=== PATIENT | male | born 1950 | race Caucasian/White ===

== ENCOUNTER 2018-11-19 22:11 | Emergency (ER) | payer MEDICARE, BC ==
[~2018-11-19] VITALS: Ht 177.8 cm; Wt 102.1 kg
[~2018-11-19 22:11] MED LIST: ASPI-605 PO; ATORVASTATIN TAB 10MG; CALC100067 PO; DOXY100C2; MULT-1168 PO; PSYL1PAC PO; TRAZ-182 PO; UBID100C13 PO
--- NOTE | 2018-11-19 22:12 | NUR ---
PT BIBPA FROM HOME FOR INTERMITTENT CHESTPAIN X1HR. NAD NOTED. RESP EVEN AND UNLABORED. PT DENIES PAIN AT THIS TIME. PT STATES THAT PAIN IS WORSE WHEN HE SITS UP AND ON INHALATION. PT ON MONITOR IN BED 10 WITH AT BEDSIDE. WILL CONTINUE TO MONITOR.
--- NOTE | 2018-11-19 22:15 | NUR ---
TECH AT BEDSIDE FOR EKG
--- NOTE | 2018-11-19 22:29 | NUR ---
BLOOD DRAWN AND GIVEN TO LAB.
[2018-11-19] MEDS ORDERED: IV NS 0.9% 500 ML BAG IV ONE (22:30)
[2018-11-19] MEDS ORDERED: IV NS 0.9% 1,000 ML BAG IV ONE (22:30)
[2018-11-19 22:34] LABS: BASOPHILS # (AUTO) 0.1 /CMM (0.0-0.2); BASOPHILS % (AUTO) 0.9 % (0.0-2.0); EOSINOPHILS % (AUTO) 1.2 % (0.0-6.0); HEMATOCRIT 41 % (39-51); HEMOGLOBIN 13.9 g/dL (13.5-17.5); LYMPHOCYTES # (AUTO) 1.3 /CMM (0.8-4.8); LYMPHOCYTES % (AUTO) 10.4 % (20.0-44.0); MEAN CORPUSCULAR HGB CONC 34 g/dl (31.0-36.0); MEAN CORPUSCULAR VOLUME 87 fL (80-96); MONOCYTES # (AUTO) 1.4 /CMM (0.1-1.30); MONOCYTES % (AUTO) 11.2 % (2.0-12.0); NEUTROPHILS # (AUTO) 9.3 /CMM (1.8-8.9); NEUTROPHILS % (AUTO) 76.3 % (43.0-81.0); PLATELET COUNT (AUTO) 403 /CMM (150-450); RED BLOOD CELL COUNT(AUTO) 4.67 MIL/uL (4.5-6.0); WHITE BLOOD COUNT (AUTO) 12.2 K/uL (4.3-11.0)
[2018-11-19] MEDS ORDERED: IV NS 0.9% 250 ML IV ONE (22:40)
[2018-11-19] MEDS ORDERED: CT SWABBABLE VALVE TRANS SET 1 EA INFUS.SET MC ONE (22:40)
[2018-11-19] MEDS ORDERED: IOHEXOL-350 100 ML VIAL IV ONE (22:40)
[2018-11-19 22:41] LABS: CALCIUM, SERUM 8.9 mg/dL (8.5-10.1); CARBON DIOXIDE 28 mmol/L (21-32); CHLORIDE 99 mmol/L (98-107); CREATININE 1.2 mg/dL (0.6-1.3); GLUCOSE 109 mg/dL (74-106); POTASSIUM 3.4 mmol/L (3.5-5.1); SODIUM SERUM 137 mmol/L (136-145); UREA NITROGEN, BLOOD 11 mg/dL (7-18)
--- NOTE | 2018-11-19 22:48 | NUR ---
PT TAKEN TO RADIOLOGY VIA [facility] FOR CT
--- NOTE | 2018-11-19 23:05 | NUR ---
PT RETURNED FROM RADIOLOGY
--- NOTE | 2018-11-20 00:32 | NUR ---
TECH AT BEDSIDE FOR REPEAT EKG
--- NOTE | 2018-11-20 00:34 | NUR ---
PHLEB AT BEDSIDE FOR REPEAT TROPONIN
[2018-11-20 01:02] VITALS: BP 124/78
--- NOTE | 2018-11-20 01:24 | NUR ---
IV removed. Catheter intact and site benign. Pressure and 4x4 applied to site. No bleeding noted.Patient discharged to home in stable condition. Written and verbal after care instructions given. Patient verbalizes understanding of instruction. PT TAKEN TO VEHICLE VIA WHEELCHAIR.
== END 2018-11-20 01:26 | disposition home or self-care (01) ==
LOC: ER 22:19
DX: R07.81 Pleurodynia (principal); E78.00 Pure hypercholesterolemia, unspecified; Z79.82 Long term (current) use of aspirin; Z86.73 Personal history of transient ischemic attack (TIA), and cerebral infarction without residual deficits; Z88.2 Allergy status to sulfonamides
CPT/HCPCS: 36415 ×2; 71275; 80048; 84484 ×2; 85025; 93005 ×3; 99284; J7030; J7040; J7050; Q9967